=== PATIENT | male | born 1985 | race Caucasian/White ===

== ENCOUNTER 2023-03-07 22:13 | Emergency (ER) | payer MEDICAID, OTHER ==
[~2023-03-07] VITALS: Ht 188 cm; Wt 182.6 kg
[~2023-03-07 22:13] MED LIST: BUSP30TA3 PO; DIVA500T4 PO; LURA60TA PO; OLAN10TA3 PO; QUET-1 PO
[2023-03-08 03:05] LABS: BASOPHILS # (AUTO) 0.1 X10'3 (0-0.2); BASOPHILS % (AUTO) 1.1 % (0-1); EOSINOPHILS # (AUTO) 0.1 X10'3 (0-0.9); EOSINOPHILS % (AUTO) 1.1 % (0-6); HEMATOCRIT 48.4 % (42.0-52.0); HEMOGLOBIN 16.5 g/dl (14.0-17.9); LYMPHOCYTES # (AUTO) 2.5 X10'3 (1.1-4.8); LYMPHOCYTES % (AUTO) 28.5 % (21-51); MEAN CORPUSCULAR HEMOGLOBIN 28.5 PG (27.0-31.0); MEAN CORPUSCULAR VOLUME 83.7 FL (78-98); MEAN PLATELET VOLUME 7.2 FL (7.4-10.4); MONOCYTES # (AUTO) 0.8 X10'3 (0-0.9); MONOCYTES % (AUTO) 8.8 % (2-12); NEUTROPHILS # (AUTO) 5.4 X10'3 (1.8-7.7); NEUTROPHILS % (AUTO) 60.5 % (42-75); PLATELET COUNT 315 X10'3 (140-440); RED BLOOD COUNT 5.78 X10'6 (4.70-6.10); RED CELL DISTRIBUTION WIDTH 15.3 % (11.5-14.5); WHITE BLOOD COUNT 8.8 X10'3 (4.5-11.0)
[2023-03-08 03:09] LABS: ALANINE AMINOTRANSFERASE 81 U/L (12-78); ALBUMIN 4.4 G/DL (3.4-5.0); ALKALINE PHOSPHATASE 96 IU/L (46-116); ANION GAP 9 (8-16); ASPARTATE AMINO TRANSFERASE 67 U/L (10-37); BILIRUBIN,TOTAL 1.2 MG/DL (0.1-1.0); BLOOD UREA NITROGEN 11 MG/DL (7-18); BUN/CREATININE RATIO 10.4 (10.0-20.0); CALCIUM 10.2 MG/DL (8.5-10.1); CHLORIDE 98 MMOL/L (99-107); CREATININE 1.06 MG/DL (0.60-1.10); ETHANOL < 10 MG/DL (<10); GLUCOSE 167 MG/DL (70-104); POTASSIUM 3.8 MMOL/L (3.5-5.1); SALICYLATE 0.1 MG/DL (4.0-20.0); SODIUM 138 MMOL/L (135-145); TOTAL CARBON DIOXIDE 31.3 MMOL/L (24-32); TOTAL PROTEIN 8.8 G/DL (6.4-8.2); eCRCL 110 ML/MIN; eGFR 78 ML/MIN
[2023-03-08 03:10] LABS: ACETAMINOPHEN < 2.0 UG/ML (10-30)
[2023-03-08 03:32] LABS: URINE AMPHETAMINE SCREEN POSITIVE (Neg); URINE BARBITUATE SCREEN NEGATIVE (Neg); URINE BENZODIAZEPINES SCREEN NEGATIVE (Neg); URINE CANNABINOID SCREEN NEGATIVE (Neg); URINE COCAINE SCREEN NEGATIVE (Neg); URINE METHADONE SCREEN NEGATIVE (Neg); URINE OPIATE SCREEN NEGATIVE (Neg); URINE PHENCYCLIDINE SCREEN NEGATIVE (Neg)
[2023-03-08] MEDS ORDERED: LORazepam 1 MG tablet PO ONE (18:15)
[2023-03-08] MEDS ORDERED: diphenoxylate/atropine tablet (Lomotil) PO PRN ×2 (21:15→21:42)
[2023-03-08] MEDS ORDERED: traZODone 50mg tablet PO PRN (21:15)
[2023-03-08] MEDS: NICOTINE POLACRILEX 2 MG LOZENGE BC PRN (21:31)
[2023-03-09] MEDS: NICOTINE POLACRILEX 2 MG LOZENGE BC PRN ×2 (05:31→10:51)
[2023-03-09 08:30] VITALS: RESP 14
== END 2023-03-09 10:55 | disposition admitted as inpatient to this hospital (09) ==
LOC: ER 22:13
DX: R45.851 Suicidal ideations (principal); Z20.822 Contact with and (suspected) exposure to COVID-19; F32.A Depression, unspecified; F20.9 Schizophrenia, unspecified; Z88.8 Allergy status to other drugs, medicaments and biological substances; Z79.899 Other long term (current) drug therapy
CPT/HCPCS: 36415; 80053; 80305; 80320; 80329; 82948; 85025; 87811; 99285

== ENCOUNTER 2023-06-21 02:13 | Emergency (ER) | payer MEDICAID ==
[~2023-06-21] VITALS: Ht 188 cm; Wt 175.0 kg
[2023-06-21 02:28] VITALS: TEMP 98
[2023-06-21] MEDS: LORazepam 1 MG tablet PO ONE (03:16)
[2023-06-21 03:24] LABS: URINE AMPHETAMINE SCREEN NEGATIVE (Neg); URINE BARBITUATE SCREEN NEGATIVE (Neg); URINE BENZODIAZEPINES SCREEN NEGATIVE (Neg); URINE CANNABINOID SCREEN NEGATIVE (Neg); URINE COCAINE SCREEN NEGATIVE (Neg); URINE METHADONE SCREEN NEGATIVE (Neg); URINE OPIATE SCREEN NEGATIVE (Neg); URINE PHENCYCLIDINE SCREEN NEGATIVE (Neg)
[2023-06-21 04:10] LABS: BILIRUBIN,URINE NEGATIVE (Neg); CLARITY,URINE CLEAR (Clear); COLOR,URINE YELLOW (Yellow); GLUCOSE, URINE NEGATIVE (Neg); KETONES,URINE NEGATIVE (Neg); LEUKOCYTE ESTERASE ,URINE NEGATIVE (Neg); NITRITES, URINE NEGATIVE (Neg); OCCULT BLOOD,URINE NEGATIVE (Neg); PH,URINE 6.5 (4.8-8.0); PROTEIN,URINE NEGATIVE (Neg); UROBILINOGEN,URINE 0.2 E.U/dL (0.2-1.0)
[2023-06-21 04:11] LABS: BASOPHILS # (AUTO) 0.1 X10'3 (0-0.2); BASOPHILS % (AUTO) 0.9 % (0-1); EOSINOPHILS # (AUTO) 0.2 X10'3 (0-0.9); EOSINOPHILS % (AUTO) 2.5 % (0-6); HEMATOCRIT 40.2 % (42.0-52.0); HEMOGLOBIN 13.7 g/dl (14.0-17.9); LYMPHOCYTES # (AUTO) 1.8 X10'3 (1.1-4.8); LYMPHOCYTES % (AUTO) 22.7 % (21-51); MEAN CORPUSCULAR HEMOGLOBIN 27.7 PG (27.0-31.0); MEAN CORPUSCULAR VOLUME 81.3 FL (78-98); MONOCYTES # (AUTO) 0.6 X10'3 (0-0.9); MONOCYTES % (AUTO) 7.5 % (2-12); NEUTROPHILS # (AUTO) 5.2 X10'3 (1.8-7.7); NEUTROPHILS % (AUTO) 66.4 % (42-75); PLATELET COUNT 264 X10'3 (140-440); RED BLOOD COUNT 4.94 X10'6 (4.70-6.10); RED CELL DISTRIBUTION WIDTH 14.3 % (11.5-14.5); WHITE BLOOD COUNT 7.8 X10'3 (4.5-11.0)
[2023-06-21 04:13] LABS: ALANINE AMINOTRANSFERASE 72 U/L (12-78); ALBUMIN 3.6 G/DL (3.4-5.0); ALKALINE PHOSPHATASE 79 IU/L (46-116); ANION GAP 6 (8-16); ASPARTATE AMINO TRANSFERASE 34 U/L (10-37); BILIRUBIN,TOTAL 0.7 MG/DL (0.1-1.0); BLOOD UREA NITROGEN 10 MG/DL (7-18); BUN/CREATININE RATIO 12.7 (10.0-20.0); CALCIUM 8.8 MG/DL (8.5-10.1); CHLORIDE 101 MMOL/L (99-107); CREATININE 0.79 MG/DL (0.60-1.10); GLUCOSE 148 MG/DL (70-104); POTASSIUM 3.7 MMOL/L (3.5-5.1); SODIUM 139 MMOL/L (135-145); TOTAL CARBON DIOXIDE 31.9 MMOL/L (24-32); TOTAL PROTEIN 7.2 G/DL (6.4-8.2); eCRCL 147 ML/MIN; eGFR > 90 ML/MIN
[2023-06-21 04:18] LABS: UA COLLECTION TYPE CLN CATCH MIDSTREAM
[2023-06-21 04:20] LABS: ETHANOL < 10 MG/DL (<10); THYROID STIMULATING HORMONE 4.42 ulU/ml (0.34-4.50)
[2023-06-21 04:31] LABS: ACETAMINOPHEN < 2.0 UG/ML (10-30)
[2023-06-21 08:58] VITALS: BP 155/98; PULSE 92; RESP 18; O2SAT 95
[2023-06-21] MEDS: acetaminophen 325mg tablet PO ONE (09:04)
== END 2023-06-21 10:33 | disposition home or self-care (01) ==
LOC: ER 02:14
DX: R45.851 Suicidal ideations (principal); F29 Unspecified psychosis not due to a substance or known physiological condition; F32.A Depression, unspecified; F20.9 Schizophrenia, unspecified; F10.90 Alcohol use, unspecified, uncomplicated; F15.90 Other stimulant use, unspecified, uncomplicated; Z20.822 Contact with and (suspected) exposure to COVID-19; Z88.8 Allergy status to other drugs, medicaments and biological substances; Z79.899 Other long term (current) drug therapy
CPT/HCPCS: 36415; 80053; 80305; 80320; 80329; 81003; 84439; 84443; 85025; 87811; 99284

== ENCOUNTER 2023-07-01 02:22 | Inpatient (IN) | payer MEDICAID ==
[~2023-07-01] VITALS: Ht 188 cm; Wt 187.1 kg
[2023-07-01] MEDS: LORazepam 1 MG tablet PO ONE (03:27)
[2023-07-01 03:59] LABS: BASOPHILS # (AUTO) 0.1 X10'3 (0-0.2); BASOPHILS % (AUTO) 1.4 % (0-1); EOSINOPHILS # (AUTO) 0.2 X10'3 (0-0.9); EOSINOPHILS % (AUTO) 2.4 % (0-6); HEMATOCRIT 38.9 % (42.0-52.0); HEMOGLOBIN 13.3 g/dl (14.0-17.9); LYMPHOCYTES # (AUTO) 1.5 X10'3 (1.1-4.8); LYMPHOCYTES % (AUTO) 20.2 % (21-51); MEAN CORPUSCULAR HEMOGLOBIN 27.7 PG (27.0-31.0); MEAN CORPUSCULAR HGB CONC 34.3 g/dL (33.0-36.5); MEAN CORPUSCULAR VOLUME 80.9 FL (78-98); MEAN PLATELET VOLUME 6.9 FL (7.4-10.4); MONOCYTES # (AUTO) 0.6 X10'3 (0-0.9); NEUTROPHILS # (AUTO) 5.2 X10'3 (1.8-7.7); PLATELET COUNT 255 X10'3 (140-440); RED BLOOD COUNT 4.81 X10'6 (4.70-6.10); RED CELL DISTRIBUTION WIDTH 14.1 % (11.5-14.5); WHITE BLOOD COUNT 7.6 X10'3 (4.5-11.0)
[2023-07-01 04:16] LABS: ALBUMIN 3.5 G/DL (3.4-5.0); ANION GAP 8 (8-16); BLOOD UREA NITROGEN 9 MG/DL (7-18); BUN/CREATININE RATIO 11.7 (10.0-20.0); CALCIUM 9.2 MG/DL (8.5-10.1); CHLORIDE 104 MMOL/L (99-107); CREATININE 0.77 MG/DL (0.60-1.10); GLUCOSE 114 MG/DL (70-104); POTASSIUM 3.6 MMOL/L (3.5-5.1); SALICYLATE 0.9 MG/DL (4.0-20.0); SODIUM 140 MMOL/L (135-145); THYROID STIMULATING HORMONE 4.97 ulU/ml (0.34-4.50); TOTAL CARBON DIOXIDE 27.9 MMOL/L (24-32); eCRCL 151 ML/MIN; eGFR > 90 ML/MIN
[2023-07-01 04:17] LABS: URINE AMPHETAMINE SCREEN NEGATIVE (Neg); URINE BARBITUATE SCREEN NEGATIVE (Neg); URINE BENZODIAZEPINES SCREEN NEGATIVE (Neg); URINE CANNABINOID SCREEN NEGATIVE (Neg); URINE COCAINE SCREEN NEGATIVE (Neg); URINE METHADONE SCREEN NEGATIVE (Neg); URINE OPIATE SCREEN NEGATIVE (Neg); URINE PHENCYCLIDINE SCREEN NEGATIVE (Neg)
[2023-07-01 04:19] LABS: ACETAMINOPHEN < 2.0 UG/ML (10-30); ETHANOL < 10 MG/DL (<10)
[2023-07-01 04:24] LABS: BILIRUBIN,URINE NEGATIVE (Neg); CLARITY,URINE CLEAR (Clear); COLOR,URINE YELLOW (Yellow); GLUCOSE, URINE NEGATIVE (Neg); KETONES,URINE NEGATIVE (Neg); LEUKOCYTE ESTERASE ,URINE NEGATIVE (Neg); NITRITES, URINE NEGATIVE (Neg); OCCULT BLOOD,URINE NEGATIVE (Neg); PH,URINE 6.5 (4.8-8.0); PROTEIN,URINE NEGATIVE (Neg); UROBILINOGEN,URINE 0.2 E.U/dL (0.2-1.0)
[2023-07-01 04:24] LABS: LITHIUM < 0.3 MMOL/L (0.8-1.2)
[2023-07-01 04:25] LABS: UA COLLECTION TYPE CLN CATCH MIDSTREAM
[2023-07-01] MEDS ORDERED: CHOL20002 PO (05:04)
[2023-07-01] MEDS ORDERED: SEMA0.258 (05:04)
[2023-07-01] MEDS ORDERED: CLON0.1T PO (05:04)
[2023-07-01] MEDS ORDERED: CETI10TA14 PO (05:04)
[2023-07-01] MEDS ORDERED: OMEP20CA16 PO (05:04)
[2023-07-01] MEDS ORDERED: METF-900 PO (05:04)
[2023-07-01] MEDS ORDERED: LUMA42CA PO (05:04)
[2023-07-01] MEDS ORDERED: HYDR-3686 PO (05:04)
[2023-07-01] MEDS ORDERED: non-formulary drug (Metformin Hcl* (Metformin ER*) 1 TAB) PO SCH (08:00)
[2023-07-01] MEDS: cetirizine 10mg tablet PO SCH (08:49)
[2023-07-01] MEDS: cholecalciferol (vitamin D3) 1,000 unit (25mcg) tablet PO SCH (08:49)
[2023-07-01] MEDS: cloNIDine 0.1 mg tablet PO SCH (08:49)
[2023-07-01] MEDS: pantoprazole 40mg Tablet.DR PO SCH (08:49)
[2023-07-01] MEDS: hydrOXYzine 25 MG tablet PO SCH (08:50)
[2023-07-01] MEDS: metFORMIN 500mg tablet PO SCH (17:43)
[2023-07-01] MEDS ORDERED: Melatonin 3mg tablet PO ONE (20:35)
[2023-07-01] MEDS: Melatonin 3mg tablet PO ONE (20:43)
[2023-07-02] MEDS: ibuprofen 200mg tablet PO PRN (05:39)
[2023-07-02] MEDS ORDERED: LUMATEPERONE TOSYLATE 42 MG PO SCH (08:00)
[2023-07-02] MEDS: metFORMIN 500mg tablet PO SCH (17:26)
[2023-07-02] MEDS ORDERED: magnesium hydroxide 30ml (MOM) UD suspension PO PRN (22:10)
[2023-07-02] MEDS ORDERED: mag hydrox/Alum hydrox/simeth 30ml oral suspension PO PRN (22:10)
[2023-07-02] MEDS ORDERED: loperamide 2mg capsule PO PRN (22:10)
[2023-07-02 23:05] VITALS: RESP 16; O2SAT 96
[2023-07-02 23:09] VITALS: BP 144/87; PULSE 80; RESP 16; TEMP 98.3; O2SAT 96
[2023-07-03] MEDS: acetaminophen 325mg tablet PO PRN ×2 (03:28→08:02)
[2023-07-03 07:00] VITALS: RESP 16; O2SAT 96
[2023-07-03 07:51] LABS: HEMOGLOBIN A1C 7.1 % (4.5-6.2)
[2023-07-03 08:00] VITALS: BP 113/63; PULSE 63; RESP 16; TEMP 97.6; O2SAT 98
[2023-07-03] MEDS: nicotine 21mg patch - 24 hr TD SCH (08:00)
[2023-07-03 08:10] LABS: CHOL/HDL RATIO 4.1 (0.00-4.99); CHOLESTEROL 152 MG/DL (0-200); HDL CHOLESTEROL 37 MG/DL (35-60); LDL CHOLESTEROL 96 MG/DL (50-100); TRIGLYCERIDES 105 MG/DL (20-135)
[2023-07-03 19:00] VITALS: BP 138/85; PULSE 74; RESP 20; TEMP 97.6; O2SAT 96
[2023-07-03] MEDS: traZODone 50mg tablet PO PRN (21:58)
[2023-07-03] MEDS: risperiDONE 0.5mg tablet PO SCH (22:00)
[2023-07-04 07:00] VITALS: RESP 20; O2SAT 96
[2023-07-04 08:00] VITALS: BP 123/58; PULSE 64; RESP 20; TEMP 97.9; O2SAT 96
[2023-07-04 14:08] LABS: HBSAG SCREEN Negative (Negative); HEP B CORE AB, IGM Negative (Negative); HEP B CORE AB, TOT Negative (Negative)
[2023-07-04 19:00] VITALS: BP 147/90; PULSE 92; RESP 17; TEMP 98.4; O2SAT 97
[2023-07-04] MEDS: prazosin 1mg capsule PO SCH (20:22)
[2023-07-05 07:00] VITALS: BP 98/58; PULSE 66; RESP 16; TEMP 98.7; O2SAT 98
[2023-07-05] MEDS: SUMAtriptan 25 MG tablet PO ONE (09:59)
[2023-07-05] MEDS: metFORMIN 500mg tablet PO SCH (18:02)
[2023-07-05 19:00] VITALS: RESP 18; O2SAT 97
[2023-07-05 20:00] VITALS: BP 144/85; PULSE 88; RESP 18; TEMP 97.1; O2SAT 97
[2023-07-06 07:00] VITALS: RESP 16; O2SAT 97
[2023-07-06 08:00] VITALS: PULSE 79; RESP 16; TEMP 98.1; O2SAT 97
[2023-07-06] MEDS: buPROPion 75mg tablet PO SCH (08:34)
[2023-07-06 19:00] VITALS: BP 147/94; PULSE 83; RESP 16; RESP 20; TEMP 98; O2SAT 96; O2SAT 97
[2023-07-06 19:40] VITALS: BP 147/94; PULSE 83; RESP 18; TEMP 98; O2SAT 97
[2023-07-07] MEDS: Melatonin 3mg tablet PO PRN (04:05)
[2023-07-07 07:00] VITALS: RESP 18; O2SAT 96
[2023-07-07 08:00] VITALS: BP 117/60; PULSE 72; RESP 18; TEMP 98.7; O2SAT 96
[2023-07-07] MEDS: buPROPion 75mg tablet PO SCH (08:13)
[2023-07-07] MEDS: NICOTINE POLACRILEX 2 MG LOZENGE BC PRN ×2 (18:41→20:40)
[2023-07-07 19:00] VITALS: RESP 18; O2SAT 97
[2023-07-07 20:29] VITALS: BP 153/98; PULSE 81; RESP 18; TEMP 98; O2SAT 97
[2023-07-07] MEDS: prazosin 1mg capsule PO SCH (20:39)
[2023-07-08] MEDS: SUMAtriptan 25 MG tablet PO ONE (06:44)
[2023-07-08 07:00] VITALS: RESP 16; O2SAT 96
[2023-07-08 08:00] VITALS: BP 116/83; PULSE 90; RESP 14; TEMP 97.7; O2SAT 96
[2023-07-08] MEDS ORDERED: MELA3TAB39 PO (10:07)
[2023-07-08] MEDS ORDERED: HYDR-3686 PO (10:07)
[2023-07-08] MEDS ORDERED: PRAZ1CAP5 PO (10:07)
[2023-07-08] MEDS ORDERED: PANT40TA54 PO (10:07)
[2023-07-08] MEDS ORDERED: METF-1203 PO (10:07)
[2023-07-08] MEDS ORDERED: RISP-31 PO (10:07)
[2023-07-08] MEDS ORDERED: BUPR-297 PO (10:07)
[2023-07-08] MEDS ORDERED: NICO-687 TD (10:07)
== END 2023-07-08 10:38 | disposition home or self-care (01) | DRG 751 ==
LOC: ER 02:23 → ED HOLD 07-02 20:39 → ADULT MH 07-02 22:06
PROVIDERS: ADMIT Psychiatry & Neurology Psychiatry; ATTEND Psychiatry & Neurology Psychiatry
PROC: GZHZZZZ Group Psychotherapy (ICD-10-PCS; principal; 2023-07-03)
DX: F33.9 Major depressive disorder, recurrent, unspecified (principal); F29 Unspecified psychosis not due to a substance or known physiological condition; R45.851 Suicidal ideations; Z68.43 Body mass index [BMI] 50.0-59.9, adult; K21.9 Gastro-esophageal reflux disease without esophagitis; Z20.822 Contact with and (suspected) exposure to COVID-19; E11.9 Type 2 diabetes mellitus without complications; E55.9 Vitamin D deficiency, unspecified; E66.01 Morbid (severe) obesity due to excess calories; E03.9 Hypothyroidism, unspecified; Z79.84 Long term (current) use of oral hypoglycemic drugs; F15.90 Other stimulant use, unspecified, uncomplicated
CPT/HCPCS: 36415; 80048; 80061; 80178; 80305; 80320; 80329; 81003; 82948; 83036; 84443; 85025; 86704; 86705; 87081; 87340; 87811; 99285; Q0177

== ENCOUNTER 2023-08-21 02:33 | Emergency (ER) | payer MEDICAID ==
[~2023-08-21] VITALS: Ht 188 cm; Wt 180.0 kg
[~2023-08-21 02:33] MED LIST changes: +BUPR-297 PO; -BUSP30TA3 PO; +CETI10TA14 PO; +CHOL100046 PO; -DIVA500T4 PO; +HYDR-3686 PO; -LURA60TA PO; +MELA3TAB39 PO; +METF-1203 PO; +NICO-687 TD; -OLAN10TA3 PO; +PANT40TA54 PO; +PRAZ1CAP5 PO; -QUET-1 PO; +RISP-31 PO; +RISP0.5T74 PO
[2023-08-21 03:32] VITALS: TEMP 98.3
[2023-08-21 06:36] VITALS: BP 125/68; PULSE 75; RESP 15; O2SAT 95
[2023-08-21] MEDS: OLANZapine **IM** 10 mg inj. IM ONE (06:42)
[2023-08-21] MEDS: busPIRone 15mg tablet PO ONE (06:42)
== END 2023-08-21 07:16 | disposition home or self-care (01) ==
LOC: ER 02:34
DX: F41.9 Anxiety disorder, unspecified (principal); R44.2 Other hallucinations; F31.9 Bipolar disorder, unspecified; F15.90 Other stimulant use, unspecified, uncomplicated; Z88.8 Allergy status to other drugs, medicaments and biological substances; Z79.899 Other long term (current) drug therapy; Z79.84 Long term (current) use of oral hypoglycemic drugs
CPT/HCPCS: 96372; 99283; J3490

== ENCOUNTER 2023-08-25 23:45 | Emergency (ER) | payer MEDICAID ==
[~2023-08-25] VITALS: Ht 188 cm; Wt 185.7 kg
[2023-08-25 23:49] VITALS: TEMP 98.5; O2SAT 95
[2023-08-26] MEDS: levetiracetam 250mg tablet PO ONE (04:03)
[2023-08-26 04:06] VITALS: BP 137/92; PULSE 72; RESP 16
== END 2023-08-26 04:10 | disposition home or self-care (01) ==
LOC: ER 23:45
DX: G47.53 Recurrent isolated sleep paralysis (principal); F31.9 Bipolar disorder, unspecified; F15.90 Other stimulant use, unspecified, uncomplicated; Z88.8 Allergy status to other drugs, medicaments and biological substances; Z79.899 Other long term (current) drug therapy; Z79.84 Long term (current) use of oral hypoglycemic drugs
CPT/HCPCS: 99283

== ENCOUNTER 2023-09-10 03:12 | Emergency (ER) | payer MEDICAID ==
[~2023-09-10] VITALS: Ht 188 cm; Wt 175.0 kg
[2023-09-10 04:32] LABS: BASOPHILS # (AUTO) 0.1 X10'3 (0-0.2); BASOPHILS % (AUTO) 0.8 % (0-1); EOSINOPHILS # (AUTO) 0.2 X10'3 (0-0.9); EOSINOPHILS % (AUTO) 2.7 % (0-6); HEMOGLOBIN 13.1 g/dl (14.0-17.9); LYMPHOCYTES # (AUTO) 2.2 X10'3 (1.1-4.8); LYMPHOCYTES % (AUTO) 28.5 % (21-51); MEAN CORPUSCULAR HGB CONC 34.6 g/dL (33.0-36.5); MEAN CORPUSCULAR VOLUME 80.9 FL (78-98); MEAN PLATELET VOLUME 7.2 FL (7.4-10.4); MONOCYTES # (AUTO) 0.5 X10'3 (0-0.9); NEUTROPHILS # (AUTO) 4.9 X10'3 (1.8-7.7); PLATELET COUNT 246 X10'3 (140-440); RED CELL DISTRIBUTION WIDTH 14.8 % (11.5-14.5); WHITE BLOOD COUNT 7.8 X10'3 (4.5-11.0)
[2023-09-10 04:49] LABS: ALBUMIN 3.6 G/DL (3.4-5.0); ANION GAP 7 (8-16); BLOOD UREA NITROGEN 8 MG/DL (7-18); BUN/CREATININE RATIO 9.1 (10.0-20.0); CALCIUM 8.7 MG/DL (8.5-10.1); CHLORIDE 104 MMOL/L (99-107); CREATININE 0.88 MG/DL (0.60-1.10); ETHANOL < 10 MG/DL (<10); GLUCOSE 157 MG/DL (70-104); SODIUM 142 MMOL/L (135-145); THYROID STIMULATING HORMONE 2.92 ulU/ml (0.34-4.50); TOTAL CARBON DIOXIDE 31.2 MMOL/L (24-32); eCRCL 132 ML/MIN; eGFR > 90 ML/MIN
[2023-09-10 04:56] LABS: POTASSIUM 2.7 MMOL/L (3.5-5.1)
[2023-09-10] MEDS: potassium Cl 20 mEq SR tablet PO STA (05:36)
[2023-09-10 05:37] VITALS: BP 162/95; PULSE 98; RESP 20; TEMP 98.4; O2SAT 95
[2023-09-10 05:59] LABS: URINE AMPHETAMINE SCREEN NEGATIVE (Neg); URINE BARBITUATE SCREEN NEGATIVE (Neg); URINE BENZODIAZEPINES SCREEN NEGATIVE (Neg); URINE CANNABINOID SCREEN NEGATIVE (Neg); URINE COCAINE SCREEN NEGATIVE (Neg); URINE METHADONE SCREEN NEGATIVE (Neg); URINE OPIATE SCREEN NEGATIVE (Neg); URINE PHENCYCLIDINE SCREEN NEGATIVE (Neg)
[2023-09-10 09:49] LABS: BASOPHILS # (AUTO) 0.1 X10'3 (0-0.2); BASOPHILS % (AUTO) 1.5 % (0-1); EOSINOPHILS # (AUTO) 0.3 X10'3 (0-0.9); HEMATOCRIT 43.5 % (42.0-52.0); HEMOGLOBIN 14.8 g/dl (14.0-17.9); LYMPHOCYTES # (AUTO) 1.9 X10'3 (1.1-4.8); LYMPHOCYTES % (AUTO) 21.8 % (21-51); MEAN CORPUSCULAR HEMOGLOBIN 27.6 PG (27.0-31.0); MEAN CORPUSCULAR VOLUME 81.2 FL (78-98); MEAN PLATELET VOLUME 6.9 FL (7.4-10.4); MONOCYTES # (AUTO) 0.5 X10'3 (0-0.9); MONOCYTES % (AUTO) 5.4 % (2-12); NEUTROPHILS % (AUTO) 68.3 % (42-75); PLATELET COUNT 269 X10'3 (140-440); RED BLOOD COUNT 5.35 X10'6 (4.70-6.10); RED CELL DISTRIBUTION WIDTH 15.4 % (11.5-14.5); WHITE BLOOD COUNT 8.7 X10'3 (4.5-11.0)
[2023-09-10 09:51] LABS: ANION GAP 7 (8-16); BLOOD UREA NITROGEN 6 MG/DL (7-18); BUN/CREATININE RATIO 7.4 (10.0-20.0); CHLORIDE 106 MMOL/L (99-107); CREATININE 0.81 MG/DL (0.60-1.10); ETHANOL < 10 MG/DL (<10); GLUCOSE 117 MG/DL (70-104); POTASSIUM 3.6 MMOL/L (3.5-5.1); SODIUM 145 MMOL/L (135-145); TOTAL CARBON DIOXIDE 31.7 MMOL/L (24-32); eCRCL 144 ML/MIN; eGFR > 90 ML/MIN
== END 2023-09-10 12:52 | disposition home or self-care (01) ==
LOC: ER 03:13
DX: F45.9 Somatoform disorder, unspecified (principal); Z73.6 Limitation of activities due to disability; Z20.822 Contact with and (suspected) exposure to COVID-19; F15.90 Other stimulant use, unspecified, uncomplicated; F32.A Depression, unspecified; F10.90 Alcohol use, unspecified, uncomplicated; Z79.899 Other long term (current) drug therapy; Z79.84 Long term (current) use of oral hypoglycemic drugs; Z88.8 Allergy status to other drugs, medicaments and biological substances
CPT/HCPCS: 36415; 73120; 80048; 80305; 80320; 84443; 85025; 87811; 99284

== ENCOUNTER 2023-09-12 21:05 | Emergency (ER) | payer MEDICAID ==
[~2023-09-12] VITALS: Ht 188 cm; Wt 185.8 kg
[2023-09-12 21:29] LABS: BASOPHILS # (AUTO) 0.1 X10'3 (0-0.2); BASOPHILS % (AUTO) 0.7 % (0-1); EOSINOPHILS # (AUTO) 0.3 X10'3 (0-0.9); EOSINOPHILS % (AUTO) 3.1 % (0-6); HEMATOCRIT 40.5 % (42.0-52.0); HEMOGLOBIN 13.7 g/dl (14.0-17.9); LYMPHOCYTES # (AUTO) 2.2 X10'3 (1.1-4.8); LYMPHOCYTES % (AUTO) 25.4 % (21-51); MEAN CORPUSCULAR HEMOGLOBIN 27.8 PG (27.0-31.0); MEAN CORPUSCULAR HGB CONC 33.9 g/dL (33.0-36.5); MEAN CORPUSCULAR VOLUME 81.9 FL (78-98); MEAN PLATELET VOLUME 6.9 FL (7.4-10.4); MONOCYTES # (AUTO) 0.6 X10'3 (0-0.9); MONOCYTES % (AUTO) 7.4 % (2-12); NEUTROPHILS # (AUTO) 5.5 X10'3 (1.8-7.7); NEUTROPHILS % (AUTO) 63.4 % (42-75); PLATELET COUNT 281 X10'3 (140-440); RED BLOOD COUNT 4.95 X10'6 (4.70-6.10); RED CELL DISTRIBUTION WIDTH 15.2 % (11.5-14.5); WHITE BLOOD COUNT 8.6 X10'3 (4.5-11.0)
[2023-09-12 21:42] LABS: ALBUMIN 3.9 G/DL (3.4-5.0); ANION GAP 6 (8-16); BLOOD UREA NITROGEN 8 MG/DL (7-18); BUN/CREATININE RATIO 8.9 (10.0-20.0); CALCIUM 9.4 MG/DL (8.5-10.1); CHLORIDE 101 MMOL/L (99-107); GLUCOSE 151 MG/DL (70-104); POTASSIUM 3.2 MMOL/L (3.5-5.1); SODIUM 140 MMOL/L (135-145); TOTAL CARBON DIOXIDE 32.6 MMOL/L (24-32); eCRCL 129 ML/MIN; eGFR > 90 ML/MIN
[2023-09-12 21:58] LABS: URINE AMPHETAMINE SCREEN NEGATIVE (Neg); URINE BARBITUATE SCREEN NEGATIVE (Neg); URINE BENZODIAZEPINES SCREEN NEGATIVE (Neg); URINE CANNABINOID SCREEN NEGATIVE (Neg); URINE COCAINE SCREEN NEGATIVE (Neg); URINE METHADONE SCREEN NEGATIVE (Neg); URINE OPIATE SCREEN NEGATIVE (Neg); URINE PHENCYCLIDINE SCREEN NEGATIVE (Neg)
[2023-09-12 22:00] LABS: ETHANOL < 10 MG/DL (<10)
[2023-09-13 00:48] LABS: BILIRUBIN,URINE NEGATIVE (Neg); CLARITY,URINE CLEAR (Clear); COLOR,URINE STRAW (Yellow); GLUCOSE, URINE NEGATIVE (Neg); KETONES,URINE NEGATIVE (Neg); LEUKOCYTE ESTERASE ,URINE NEGATIVE (Neg); NITRITES, URINE NEGATIVE (Neg); OCCULT BLOOD,URINE NEGATIVE (Neg); PROTEIN,URINE NEGATIVE (Neg); UROBILINOGEN,URINE 0.2 E.U/dL (0.2-1.0)
[2023-09-13] MEDS ORDERED: potassium Cl 20 mEq SR tablet PO PRN (00:55)
[2023-09-13] MEDS ORDERED: potassium Cl 40MEQ/1/2NS 520ml 520 ML IV PRN (00:55)
[2023-09-13 00:57] LABS: UA COLLECTION TYPE CLN CATCH MIDSTREAM
[2023-09-13 01:03] LABS: THYROID STIMULATING HORMONE 3.93 ulU/ml (0.34-4.50)
[2023-09-13] MEDS: potassium Cl 20 mEq SR tablet PO PRN (01:09)
[2023-09-13] MEDS ORDERED: CHOL20002 PO (01:29)
[2023-09-13] MEDS ORDERED: CETI10TA19 PO (01:29)
[2023-09-13] MEDS ORDERED: LUMA42CA PO (01:29)
[2023-09-13] MEDS ORDERED: METF-438 PO (01:29)
[2023-09-13] MEDS ORDERED: HYDR-3686 PO (01:29)
[2023-09-13] MEDS ORDERED: CLON0.1T PO (01:29)
[2023-09-13 05:42] VITALS: BP 144/103; PULSE 74; RESP 14; TEMP 97.8; O2SAT 98
[2023-09-13] MEDS: cetirizine 10mg tablet PO SCH (08:00)
[2023-09-13] MEDS: Lumateperone Tosylate (Caplyta) 42 MG CAPSULE PO SCH (08:00)
[2023-09-13] MEDS: cloNIDine 0.1 mg tablet PO SCH (08:48)
[2023-09-13] MEDS: hydrOXYzine 25 MG tablet PO SCH (08:48)
[2023-09-13] MEDS: cholecalciferol (vitamin D3) 1,000 unit (25mcg) tablet PO SCH (08:48)
[2023-09-13] MEDS ORDERED: metFORMIN 500mg tablet PO SCH (17:00)
== END 2023-09-13 10:07 | disposition home or self-care (01) ==
LOC: ER 21:06
DX: R45.851 Suicidal ideations (principal); R45.850 Homicidal ideations; F20.9 Schizophrenia, unspecified; F31.9 Bipolar disorder, unspecified; F10.90 Alcohol use, unspecified, uncomplicated; F15.90 Other stimulant use, unspecified, uncomplicated; Z20.822 Contact with and (suspected) exposure to COVID-19; Z88.8 Allergy status to other drugs, medicaments and biological substances; Z79.84 Long term (current) use of oral hypoglycemic drugs; Z79.899 Other long term (current) drug therapy
CPT/HCPCS: 36415; 80048; 80305; 80320; 81003; 84132; 84443; 85025; 87811; 99284; Q0177